=== PATIENT | female | born 1950 | race Caucasian/White ===

== ENCOUNTER → 2023-08-01 08:32 | Outpatient (REF) | payer OTHER, SELFPAY | LOC: RCS 08:32 | PROVIDERS: ATTENDING PHYSICIAN Family Medicine | DX: R01.1 Cardiac murmur, unspecified (principal) | CPT/HCPCS: 93306 ==

== ENCOUNTER 2023-10-15 14:09 | Emergency (ER) | payer SELFPAY ==
[2023-10-15 14:17] VITALS: BP 153/80
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
[2023-10-15] MEDS: MOTRIN 400 MG PO (15:31)
== END 2023-10-15 18:24 | disposition home or self-care (01) ==
LOC: EMR 14:09
PROVIDERS: EMERGENCY PHYSICIAN Emergency Medicine; FAMILY PHYSICIAN Family Medicine
DX: S16.1XXA Strain of muscle, fascia and tendon at neck level, initial encounter (principal); S50.02XA Contusion of left elbow, initial encounter; S20.219A Contusion of unspecified front wall of thorax, initial encounter; R51.9 Headache, unspecified; V43.52XA Car driver injured in collision with other type car in traffic accident, initial encounter; Y92.410 Unspecified street and highway as the place of occurrence of the external cause
CPT/HCPCS: 99284; 70450; 71250; 72125; 73080

== ENCOUNTER → 2023-11-30 08:22 | Outpatient (REF) | payer OTHER, SELFPAY | LOC: WDC 08:22 | PROVIDERS: ATTENDING PHYSICIAN Family Medicine | DX: Z12.31 Encounter for screening mammogram for malignant neoplasm of breast (principal) | CPT/HCPCS: 77063; 77067 ==

== ENCOUNTER 2024-02-22 14:39 | Emergency (ER) | payer OTHER, SELFPAY ==
[2024-02-22] VITALS (8 sets, daily range): BP systolic 103–153; BP diastolic 76–100; PULSE 89–95; BMI 30.1
--- NOTE | 2024-02-22 14:44 | ED.PDOC.TRB ---
ED Provider Triage
-
Patient seen by provider in Triage?: Seen in Triage
73yoF here with fluctuating blood pressures at home today. Feels shaky. SBP 157-180s at home. No hx of HTN. No headache, visual symptoms, chest pain.
Attestation: A medical screening examination has been initiated by a qualified medical provider. Based on the assessment performed at this time, it has been determined that an emergent medical condition may exist and the patient has been informed
that further medical evaluation and possible additional diagnostic testing may be needed.
HPI:
GENERAL: Alert , in no apparent distress
EYE: No visual abnormalities.
NECK: Trachea midline
ENT: No visible abnormalities.
LUNGS: No acute respiratory distress
NEUROLOGICAL: Alert and oriented
SKIN: Skin intact. No visible changes.
MUSCULOSKELETAL: Moving extremities normally
PSYCH: Normal and appropriate interaction.
This is a medical evaluation conducted in person to initiate diagnostic evaluation and provide initial therapeutics. Please see further documentation by the treating clinician.
Will check cardiac labs and EKG.
[2024-02-22 15:17] LABS: % Basophils 0.2 % (0-2); % Eosinophils 3.4 % (0-6); % Immature Granulocytes 0.5 % (0-0.5); % Neutrophils 67.9 % (42.2-75.2); Absolute Eosinophils 0.4 10^3/uL (0-0.7); Absolute Immature Granulocytes 0.1 10^3/uL (0-0.05); Absolute Monocytes 0.9 10^3/uL (0.1-0.6); Hematocrit 40.6 % (37.0-47.0); Hemoglobin 13.7 g/dL (12.0-16.0); Mean Corp Hgb Conc. 33.7 g/dL (33.0-37.0); Mean Corpuscular Volume 82.9 fL (81.0-99.0); Mean Platelet Volume 9.4 fL (7.4-10.4); Nucleated Red Blood Cells % 0 %; Platelet Count 312 10^3/uL (130-400); Red Cell Dist. Width 13.6 % (11.5-14.5); White Blood Cell Count 10.3 10^3/uL (4.8-10.8)
[2024-02-22 15:30] LABS: ALT (SGPT) 24 U/L (0-35); AST (SGOT) 25 U/L (14-36); Albumin 4.7 g/dl (3.5-5.0); Alkaline Phosphatase 79 U/L (38-126); Blood Urea Nitrogen 13 mg/dl (7-17); Calcium 9.9 mg/dl (8.4-10.2); Carbon Dioxide 25 mmol/L (22-30); Chloride 103 mmol/L (98-107); Glucose 107 mg/dl (70-99); Potassium 4.3 mmol/L (3.5-5.1); Sodium 142 mmol/L (135-145); Total Bilirubin 0.6 mg/dl (0.2-1.3); Total Protein 7.5 g/dl (6.3-8.2); eGFR > 60.00
[2024-02-22 15:40] LABS: Troponin I < 0.012 ng/ml
--- NOTE | 2024-02-22 18:12 | ED.GENMED ---
History of Present Illness
General
Chief Complaint: Blood Pressure Problem
Source: patient, records and spouse
Exam Limitations: none
Time Seen by Provider: 02/22/24 17:17
Nursing documentation reviewed up to this point in time: agreed with
History of Present Illness
History of Present Illness:
Patient is a 73-year-old female who presents to the emergency department after her blood pressure around 1 PM today was found to be systolically 1 50-1 60. I continued that way for the next hour and then the patient's face became beet red and her
blood pressure systolically was found to be between 1 80-1 90. Patient took her propranolol which is propranolol LA 120 mg that she takes for migraines. Patient had run out of her medication and had not taken it for the past 2 days and took a dose
today after blood pressure was high. Patient feels fine now. Patient denies chest pain, shortness of breath. Patient does have occasional palpitations. Patient denies fever or chills. Patient denies headache, speech or visual difficulties,
focal weakness or ataxia. Patient denies any GI or symptoms. Patient denies any extremity edema or pain. Patient historically has had low blood pressure and with the Inderal her migraines seem to have stopped. Patient does note that she seems
to have orthostatic symptoms since she has been on the propranolol. Patient takes Inderal 120 mg LA.
Past History
Past History
ED Past Medical History: GERD and Other (Migraines, colon polyps)
Social History
Tobacco: Smoker
Alcohol: Occasional
Review of Systems
Review of Systems
All Other Systems: ROS reviewed and negative except as documented in HPI and ROS
Constitutional: Reports no symptoms
EENT: Reports no symptoms
Respiratory: Reports no symptoms
Cardiac: Reports palpitations; Denies chest pain, diaphoresis or syncope
ABD/GI: Reports no symptoms
: Reports no symptoms
Musculoskeletal: Reports no symptoms
Skin: Reports no symptoms
Neurological: Reports no symptoms
Hematologic/Lymphatic: Reports no symptoms
Psychiatric: Reports no symptoms
Phy Exam
Physical Exam
Physical Exam:
Physical Exam
General: No apparent distress, alert and appropriate, well nourished, well hydrated
HENT: Normocephalic, supple with no lymphadenopathy, no thyromegaly
Eyes: Clear sclera, conjuctiva without injection
Heart: Regular rhythm and rate. No S3, S4. No murmur. No NVD, bruit
Lungs: No respiratory distress, no stridor, lung sounds clear and equal bilaterally
Abdomen: Soft, nontender, no organomegaly, no CVA tenderness, BS good
Neuro: Alert and oriented x 3, CN II - XII intact, no motor focality, no cerebellar dysfunction
Skin: no rash
Psychiatric: well kept. interactive and cooperative
Extremities: No edema, cyanosis, tenderness
Course
Orders/Labs/Results
Orders:
Orders
02/22/24 14:48
Electrocardiogram (*1) Urgent
Reason for Study: Hypertension, Benign
EKG- Treatment ONCE
02/22/24 14:52
Complete Blood Count/With Diff Urgent
Comprehensive Metabolic Panel Urgent
Troponin I Urgent
02/22/24 17:50
Orthostatic VS- Treatment ONCE
Abnormal Lab Results
02/22/24
14:52
Abs Immat Gran (auto) 0.1 H 10^3/uL
(0-0.05)
Absolute Neuts (auto) 7.0 H 10^3/uL
(1.4-6.5)
Absolute Monos (auto) 0.9 H 10^3/uL
(0.1-0.6)
Lymphocytes % 19.0 L %
(20.5-51.1)
Glucose 107 H mg/dl
(70-99)
02/22/24 14:52
02/22/24 14:52
Vital Signs
Initial and Last Documented VS:
Initial Vital Signs
Temp Pulse Resp BP Pulse Ox
98.6 F 120 16 142/83 98
02/22/24 14:45 02/22/24 14:45 02/22/24 14:45 02/22/24 14:45 02/22/24 14:45
Last Documented Vital Signs
Temp Pulse Resp BP Pulse Ox
98.6 F 85 12 122/82 95
02/22/24 14:45 02/22/24 18:15 02/22/24 18:00 02/22/24 18:00 02/22/24 17:45
*Radiology
Radiology exam reviewed: other (na)
*Pulse Oximetry
Patient hypoxic: no
*EKG
Interpreted by ED Provider?: Yes
EKG Intrepretation Date: 02/22/24
EKG Intrepretation Time: 19:21
Interpretation: abnormal
Comparison EKG: no changes
Heart Rate: 105
Rate: normal
Rhythm: sinus
[place]: normal axis
Interval: normal interval
QRS Pattern: low voltage
Ischemia: no ischemia
*Director Patient Accounting Interpretation
Rate: normal
Interpretation: normal
Heart Rate: 90
Rhythm: sinus
*Critical Care Note
Total Time (30-74mins, 75-104mins- exclusive of procedures): Not Applicable
Update Note
Update Note:
Patient's orthostatics are positive on the pressure side. The heart rate does not increase which is probably an effect of the propranolol. Will decrease the Inderal dosage to 80 mg. I will encourage the patient to drink plenty of fluid.
ED Attending Note
-
Portions of this chart may have been created with voice recognition software.� Occasional wrong word or��sound alike� substitutions may have occurred due to the inherent limitations of voice recognition software.
Discharge Plan
Departure
Patient Disposition: Home (Routine Discharge)
Date of Disposition: 02/22/24
Time of Disposition: 18:25
Patient with high blood pressure during this ER visit?: Yes
Condition: Good
Covid-19: Not Applicable
Discharge Problem:
Orthostasis
Instructions: Orthostatic hypotension, Fainting, Adult ED, BLOOD PRESSURE
Prescriptions:
New
propranolol [Inderal LA] 80 mg capsule,extended release 24 hr
80 mg PO DAILY Qty: 30 2RF
No Action
ofloxacin 0.3 % drops
5 drp otic (ear) BID 5 Days Qty: 5 0RF
Referrals:
Latrell Mancia DO [Family Provider] - Follow up in 5-7 days
Activity Restrictions/Additional Instructions:
Stop the Inderal LA 120 mg and start the Inderal LA 80 mg. Make sure to drink plenty of fluids.
Interventions
Interventions:
*Risk Screen - Suicide Last Done: 02/22/24 14:45
*General Assessment Last Done: 02/22/24 18:45
*Neglect/Abuse Screening Last Done: 02/22/24 14:45
ED- Fall Risk Assessment Last Done: 02/22/24 17:12
*ED COVID-19 Vaccine History Last Done: 02/22/24 18:45
*Nursing Disposition Last Done: 02/22/24 18:45
ED- Cardiac Assessment Last Done: 02/22/24 17:12
ED- Neurological Assessment Last Done: 02/22/24 17:12
ED- Pulmonary Assessment Last Done: 02/22/24 17:12
Discharge Date and Time
Discharge Date/Time: 02/22/24 18:48
Print Language: [id number]
== END 2024-02-22 18:48 | disposition home or self-care (01) ==
LOC: EMR 14:39
PROVIDERS: Emergency Medicine; EMERGENCY PHYSICIAN Emergency Medicine; FAMILY PHYSICIAN Family Medicine
DX: I95.1 Orthostatic hypotension (principal); F17.200 Nicotine dependence, unspecified, uncomplicated
CPT/HCPCS: 99284; 80053; 84484; 85025; 93005

== ENCOUNTER 2024-07-19 06:12 | Emergency (ER) | payer OTHER, SELFPAY ==
[2024-07-19 06:23] VITALS: BP 138/84
[2024-07-19 08:02] VITALS: BMI 31.6
[2024-07-19 08:18] VITALS: BP 131/89
[2024-07-19 08:26] LABS: % Basophils 0.7 % (0-2); % Eosinophils 4.1 % (0-6); % Immature Granulocytes 0.3 % (0-0.5); % Lymphocytes 20.2 % (20.5-51.1); % Monocytes 8.1 % (1.7-9.3); % Neutrophils 66.6 % (42.2-75.2); Absolute Basophils 0.1 10^3/uL (0-0.2); Absolute Eosinophils 0.3 10^3/uL (0-0.7); Absolute Lymphocytes 1.4 10^3/uL (1.2-3.4); Absolute Monocytes 0.6 10^3/uL (0.1-0.6); Absolute Neutrophils 4.7 10^3/uL (1.4-6.5); Hematocrit 42.4 % (37.0-47.0); Hemoglobin 13.8 g/dL (12.0-16.0); Mean Corp Hgb Conc. 32.5 g/dL (33.0-37.0); Mean Corpuscular Hgb 28.6 pg (27.0-31.0); Mean Platelet Volume 9.9 fL (7.4-10.4); Nucleated Red Blood Cells % 0 %; Platelet Count 310 10^3/uL (130-400); Red Blood Cell Count 4.82 10^6/uL (4.20-5.40); Red Cell Dist. Width 13.4 % (11.5-14.5)
[2024-07-19 08:37] LABS: ALT (SGPT) 24 U/L (0-35); AST (SGOT) 23 U/L (14-36); Albumin 4.2 g/dl (3.5-5.0); Alkaline Phosphatase 76 U/L (38-126); Blood Urea Nitrogen 11 mg/dl (7-17); Calcium 9.7 mg/dl (8.4-10.2); Carbon Dioxide 26 mmol/L (22-30); Chloride 104 mmol/L (98-107); Estimated Creatinine Clearance 70 ml/min; Glucose 96 mg/dl (70-99); Potassium 4.5 mmol/L (3.5-5.1); Sodium 138 mmol/L (135-145); Total Bilirubin 0.5 mg/dl (0.2-1.3); eGFR > 60.00
--- NOTE | 2024-07-19 08:48 | ED.GENMED ---
History of Present Illness
General
Chief Complaint: Rectal Bleeding
Source: patient
Exam Limitations: none
Time Seen by Provider: 07/19/24 07:49
Nursing documentation reviewed up to this point in time: agreed with
History of Present Illness
History of Present Illness:
73-year-old female presents today for evaluation. Patient reports she had diarrhea and cramping 2 days ago and had mucousy bloody stool. And then again this morning patient reports she had brown stool without dark-colored blood. She did have some
abdominal cramping. She denies any nausea vomiting fever chills.
Past History
Past History
ED Past Medical History: GERD and Other (Migraines, colon polyps)
Social History
Tobacco: Smoker
Alcohol: Occasional
Review of Systems
Review of Systems
Allergies reviewed?: Yes
All Other Systems: ROS reviewed and negative except as documented in HPI and ROS
Constitutional: Reports no symptoms; Denies fever, fatigue or chills
Respiratory: Reports no symptoms
Cardiac: Reports no symptoms
ABD/GI: Reports abdominal pain, nausea, diarrhea and other (rectal bleeding )
: Reports no symptoms
Musculoskeletal: Reports no symptoms
Skin: Reports no symptoms
Neurological: Reports no symptoms
Psychiatric: Reports no symptoms
Phy Exam
General Physical Exam
General Presentation: no apparent distress
General Skin: warm and dry
General Habitus: normal
General Mental: alert
General Hydration: appears well hydrated
Cardiovascular Exam
Cardiovascular Exam: regular rate/rhythm, no murmur and normal peripheral pulses
Pulmonary Exam
Pulmonary Exam: lungs clear and no respiratory distress
Gastrointestinal Exam
Gastrointestinal Exam: soft and other (rectal exam: brown stool heme neg )
Neurological Exam
Neurological Exam: alert
Musculoskeletal Exam
Musculoskeletal Exam: full ROM
Skin Exam
Skin Exam: normal color and warm/dry
Psychiatric Exam
Psychiatric Exam: normal mood/affect
Course
Orders/Labs/Results
Orders:
Orders
07/19/24 08:14
CMP [Comprehensive Metabolic Panel] Urgent
Complete Blood Count/With Diff Urgent
07/19/24 09:31
CT Abd/Pel (IV only)-DH only Urgent
Comment:
Reason For Exam: rectal bleeding/cramping /pain
0.9% Sodium Chloride 1000 ml [Nss] 1,000 ml IV BOLUS
Abnormal Lab Results
07/19/24
08:14
MCHC 32.5 L g/dL
(33.0-37.0)
Lymphocytes % 20.2 L %
(20.5-51.1)
07/19/24 08:14
07/19/24 08:14
Vital Signs
Initial and Last Documented VS:
Initial Vital Signs
Temp Pulse Resp BP Pulse Ox
98.6 F 66 20 138/84 98
07/19/24 06:23 07/19/24 06:23 07/19/24 06:23 07/19/24 06:23 07/19/24 06:23
Last Documented Vital Signs
Temp Pulse Resp BP Pulse Ox
98.6 F 66 12 140/85 96
07/19/24 06:23 07/19/24 11:00 07/19/24 11:00 07/19/24 09:00 07/19/24 09:45
Software Applications Engineer consulted with Physician
Software Applications Engineer consulted with physician?: Yes
Name of Physician Consulted: [email or web address]
MDM/Problems Addressed
Differential Diagnosis Includes:
not limited to: gi bleed, dehydration, diverticulitis colitis
MDM/Problems Addressed:
CAT scan shows long segment colitis involving descending and sigmoid colon. Patient is in no acute distress afebrile normal white count no more episodes of diarrhea rectal exam Brown stool heme-negative. Patient no acute distress and
well-appearing. Case reviewed with ED physician will hold off on antibiotics as patient looks very well no symptoms here. Discussed close outpatient follow-up with PCP/ GI
*Critical Care Note
Total Time (30-74mins, 75-104mins- exclusive of procedures): Not Applicable
ED Attending Note
-
Portions of this chart may have been created with voice recognition software.� Occasional wrong word or��sound alike� substitutions may have occurred due to the inherent limitations of voice recognition software.
Discharge Plan
Departure
Patient Disposition: Home (Routine Discharge)
Date of Disposition: 07/19/24
Time of Disposition: 11:06
Patient with high blood pressure during this ER visit?: Yes
Condition: Fair
Covid-19: Not Applicable
Discharge Problem:
Colitis
Instructions: Bloody Stools, Adult (DC), Colitis - Discharge instructions, BLOOD PRESSURE
Prescriptions:
No Action
pantoprazole 40 mg Tablet,Delayed Release (Dr/Ec)
40 mg PO HS
ibuprofen 200 mg Tablet
600 mg PO Q6HPRN PRN (Reason: head ache)
amitriptyline 100 mg Tablet
100 mg PO HS
Excedrin Migraine 250-250-65 mg Tablet
2 tab PO DAILYPRN PRN (Reason: headache)
fluoxetine 60 mg Tablet
60 mg PO HS
propranolol [Inderal LA] 80 mg capsule,extended release 24 hr
80 mg PO HS
sumatriptan succinate 100 mg Tablet
0 mg PO .COMPLEX
Rx Instructions:
take 1 tab at onset of headache; if no relief, may repeat 1 tab after at least 2 hrs; max = 2 tabs/24 hrs
Referrals:
Latrell Mancia DO [Family Provider] -
Ree Juárez MD [Active] -
Activity Restrictions/Additional Instructions:
As discussed your CAT scan shows colitis however you do not have a fever and your white count is normal. Will hold off on antibiotics at this time. However it is very important you closely follow with your family doctor in the next 2 days for
reevaluation of your symptoms. In addition please call GI. [place] [facility]. Return however if any worsening of symptoms if continued diarrhea abdominal pain fever chills or any further concerns.
Interventions
Interventions:
*Risk Screen - Suicide Last Done: 07/19/24 06:23
*General Assessment Last Done: 07/19/24 08:02
*Neglect/Abuse Screening Last Done: 07/19/24 06:23
ED- Fall Risk Assessment Last Done: 07/19/24 08:02
*ED COVID-19 Vaccine History Last Done: 07/19/24 08:02
*Nursing Disposition Last Done: 07/19/24 11:19
LQ-Enfzpl-Rvdalmeybj Assessment Last Done: 07/19/24 08:02
ED- Cardiac Assessment Last Done: 07/19/24 08:21
ED- Pulmonary Assessment Last Done: 07/19/24 08:02
Discharge Date and Time
Discharge Date/Time: 07/19/24 11:20
Print Language: OCCITAN
[2024-07-19 09:00] VITALS: BP 140/85
[2024-07-19] MEDS: NSS 1000 IV (09:39)
== END 2024-07-19 11:20 | disposition home or self-care (01) ==
LOC: EMR 06:12
PROVIDERS: EMERGENCY PHYSICIAN Student in an Organized Health Care Education/Training Program; FAMILY PHYSICIAN Family Medicine
DX: K52.9 Noninfective gastroenteritis and colitis, unspecified (principal); R11.0 Nausea; R03.0 Elevated blood-pressure reading, without diagnosis of hypertension; K21.9 Gastro-esophageal reflux disease without esophagitis; G43.909 Migraine, unspecified, not intractable, without status migrainosus; F90.9 Attention-deficit hyperactivity disorder, unspecified type; F32.A Depression, unspecified; F17.200 Nicotine dependence, unspecified, uncomplicated; Z86.0100 Personal history of colon polyps, unspecified; Z88.1 Allergy status to other antibiotic agents; Z88.2 Allergy status to sulfonamides
CPT/HCPCS: 99284; 96360; 74177; 80053; 85025; Q9967

== ENCOUNTER 2024-08-31 06:19 | Day surgery (SDC) | payer OTHER, SELFPAY | END 2024-08-31 13:50 | disposition home or self-care (01) | LOC: GI 06:19 | PROVIDERS: ATTENDING PHYSICIAN Surgery | DX: K62.5 Hemorrhage of anus and rectum (principal); K62.1 Rectal polyp | CPT/HCPCS: 45380; 88305 ==

== ENCOUNTER 2024-09-14 15:35 | Emergency (ER) | payer OTHER, SELFPAY ==
[2024-09-14 15:41] VITALS: BP 131/94
--- NOTE | 2024-09-14 16:32 | ED.MUSCINJ ---
HPI-Injury
General
Chief Complaint: Musculo-Skeletal Complaint
Source: patient
Exam Limitations: none
Time Seen by Provider: 09/14/24 16:23
Nursing documentation reviewed up to this point in time: agreed with
History of Present Illness-Injury
Initial Injury comments:
74-year-old female with history of ADHD, depression, migraines states she was carrying something down her steps about 3 hours ago when she tripped down the last 3 steps injuring her right ankle. She denies hitting her head or any other injury.
Past History
Past History
ED Past Medical History: GERD, Psychiatric (ADHD, depression) and Other (Migraines, colon polyps)
ED Past Surgical History: Appendectomy
Social History
Tobacco: Smoker
Alcohol: Occasional
Review of Systems
Review of Systems
Allergies reviewed?: Yes
All Other Systems: ROS reviewed and negative except as documented in HPI and ROS
Musculoskeletal: Reports other (Pain and swelling right ankle)
Skin: Reports no symptoms
Neurological: Denies numbness
Musculoskeletal Injury Exam
Musculoskeletal Injury Exam
Right Lateral Ankle:
Pain with Movement?: Moderate
Tender to palpation?: Moderate
Soft tissue swelling?: Mild
External deformity and angulation?: None
Strain- Sprain- Tear (Connective tissue injury)?: Moderate
Joint instability?: No
Malalignment/deformity?: No
Range of motion: Limited
Distal skin color and temperature: normal-warm & good color
Capillary Refill: normal
Normal distal neurovascular exam?: Yes
Peripheral Pulses: posterior tibial (right): 2+ and dorsalis pedis (right): 2+
Phy Exam
Physical Exam
Physical Exam:
PHYSICAL EXAMINATION:
General: no apparent distress, not acutely ill
Neuro: alert and oriented.
Heart: Regular rate and rhythm
Lungs: CTA
Psychiatric: well kept. interactive and cooperative
Musculoskeletal: Moves with ease
Skin: Warm, pink.
Injury Course
Orders/Labs/Results
Orders:
Orders
09/14/24 15:43
Ankle, Right 3 view CR [CR Ankle - Right Min 3 Views *] Urgent
Comment:
Reason For Exam: injury
09/14/24 16:31
Crutches-Treatment ONCE
Ortho Boot Right- Treatment ONCE
Short or tall?: Tall
Ibuprofen [Motrin] 600 mg PO NOW STA
Procedures
Splint Check
Splint checked by provider?: Yes
Circulation/Movement/Sensation post splint application: brisk cap refill and full sensation
MDM/Problems Addressed
MDM/Problems Addressed:
74-year-old female with history of ADHD, depression, migraines states she was carrying something down her steps about 3 hours ago when she tripped down the last 3 steps injuring her right ankle. She denies hitting her head or any other injury.
X-ray right ankle initially read by this examiner: 2 nondisplaced spiral fractures distal fibula.
ED Attending Note
-
Portions of this chart may have been created with voice recognition software.� Occasional wrong word or��sound alike� substitutions may have occurred due to the inherent limitations of voice recognition software.
Discharge Plan
Departure
Prescriptions:
No Action
pantoprazole 40 mg Tablet,Delayed Release (Dr/Ec)
40 mg PO HS
ibuprofen 200 mg Tablet
600 mg PO Q6HPRN PRN (Reason: head ache)
amitriptyline 100 mg Tablet
100 mg PO HS
Excedrin Migraine 250-250-65 mg Tablet
2 tab PO DAILYPRN PRN (Reason: headache)
fluoxetine 60 mg Tablet
60 mg PO HS
propranolol [Inderal LA] 80 mg capsule,extended release 24 hr
80 mg PO HS
sumatriptan succinate 100 mg Tablet
0 mg PO .COMPLEX
Rx Instructions:
take 1 tab at onset of headache; if no relief, may repeat 1 tab after at least 2 hrs; max = 2 tabs/24 hrs
Interventions
Interventions:
*Risk Screen - Suicide Last Done: 09/14/24 15:41
*Neglect/Abuse Screening Last Done: 09/14/24 15:41
Discharge Date and Time
Print Language: LATVIAN
[2024-09-14] MEDS: MOTRIN 600 MG PO (17:27)
== END 2024-09-14 17:45 | disposition home or self-care (01) ==
LOC: EMR 15:35
PROVIDERS: EMERGENCY PHYSICIAN Student in an Organized Health Care Education/Training Program; FAMILY PHYSICIAN Family Medicine
DX: S82.831A Other fracture of upper and lower end of right fibula, initial encounter for closed fracture (principal); W10.9XXA Fall (on) (from) unspecified stairs and steps, initial encounter; F17.200 Nicotine dependence, unspecified, uncomplicated
CPT/HCPCS: 29515; 99283; 73610

== ENCOUNTER 2024-10-03 06:20 | Day surgery (SDC) | payer OTHER, SELFPAY ==
--- NOTE | 2024-09-28 15:31 | CM ---
Addendum entered by Keyona Parish RN 10/04/24 13:04:
[facility] Authorization
[id number]
10/04-10/10
Skilled Level 1
Addendum entered by Keyona Parish RN 10/04/24 12:16:
Patient has been accepted to [facility]. Patient is aware that she will have to provide her own supply of Vraylar. CM is awaiting PT evaluation for authorization.
Addendum entered by Keyona Parish RN 10/04/24 09:31:
CM met with patient in room. Patient is agreeable to SNF. Patient is agreeable to referrals to be sent to [facility], and [facility].
CM is awaiting PT notes.
PLAN: SNF
Original Note:
CM reviewed medical records. CM spoke with patient via phone. CM confirmed demographics. Patient lives with . Patient does not have a history of VN, SNF. Patient has a walker for ambulation. Patient is active with her PCP. patient uses [facility].
CM discussed SNF. CM advised that patient will have evaluated by PT post operatively and make a recommendations for discharge resources. CM will remain available as needed for discharge planning.
[2024-10-03] VITALS (12 sets, daily range): BP systolic 107–138; BP diastolic 56–92
[2024-10-03] MEDS: TYLENOL 1000 MG PO (09:28)
[2024-10-03] MEDS: MOBIC 15 MG PO (09:29)
[2024-10-03] MEDS: NORMOSOL-R/PLASMALYTE-A 1000 IV (09:48)
[2024-10-03 10:13] LABS: Blood Urea Nitrogen 15 mg/dl (7-17); Estimated Creatinine Clearance 76 ml/min; Glucose 83 mg/dl (70-99)
--- NOTE | 2024-10-03 12:42 | W.PN.SURGUPD ---
Surgical Update
Surgical Update
74 yo F s/p right ankle ORIF
-Posterior splint to remain C/D/I
-NWB to RLE
-PT/OT, will need discharge to SNF
-Ancef for 24 hours while admitted
-Aspirin for DVT prophylaxis upon discharge
-Follow up with myself 2 weeks after discharge at [facility]
--- NOTE | 2024-10-03 13:48 | HPS.HSE ---
Family Physician
-
Family Physician: INTERVIEWE UNKNOWN - PT NOT
Chief Complaint
-
status post ORIF ankle
History of Present Illness
Ms. Sonya Carroll is a 74 yo woman with hx GERD, ADHD, depression, migraine, with fall 09/14/24 resulting in right ankle fracture now s/p ankle ORIF today.
Patient seen post-op. She has no active complaints. No chest pain or shortness of breath.
Medical History
Past Medical History
Past Medical History: Reports Other (GERD, ADHD, depression, migraine)
Past Surgical History: Reports Other
Social History
Tobacco: Non-smoker
Family History
Family History: Not pertinent
Allergies / Home Medications
Allergies reflects when Allergies were last updated in [email or web address].
Home Medications with original date entered in [email or web address]
Allergy/Medication List:
Allergies
Allergy/AdvReac Type Severity Reaction Status Date / Time
sulfamethoxazole Allergy Itching Verified 10/03/24 09:22
[From Bactrim]
trimethoprim [From Bactrim] Allergy Itching Verified 10/03/24 09:22
Home Medications
amitriptyline 100 mg tablet 100 mg PO DAILY 07/19/24
fluoxetine 60 mg tablet 60 mg PO DAILY 07/19/24
pantoprazole 40 mg tablet,delayed release 40 mg PO DAILY 07/19/24
propranolol 80 mg capsule,24 hr,extended release (Inderal LA) 80 mg PO DAILY 07/19/24
hydrocodone 5 mg-acetaminophen 325 mg tablet 1 tab PO Q6H PRN Pain #10 tabs 09/14/24
aspirin 81 mg tablet,delayed release 81 mg PO DAILY 09/27/24
cariprazine 1.5 mg capsule (Vraylar) 1.5 mg PO DAILY 09/27/24
mecobalamin (vitamin B12) 1,000 mcg chewable tablet 1,000 mcg PO DAILY 09/27/24
rosuvastatin 5 mg tablet 5 mg PO DAILY 09/27/24
sumatriptan succinate 100 mg tablet 100 mg PO PRN PRN migraine 09/27/24
Review of Systems
-
History Source: Patient
A 12 point ROS was completed and negative except as noted: Yes
Physical Exam
Vital Signs
Vital Signs
Temp Pulse Resp BP Pulse Ox
97.7 F 63 17 138/68 92
10/03/24 12:47 10/03/24 13:45 10/03/24 13:45 10/03/24 13:45 10/03/24 13:45
Physical Exam
General: No Apparent Distress
HEENT: PERRLA
Respiratory: Clear; No Wheezes
Cardiac: S1/S2 and Regular Rhythm
GI: Soft and Non Tender
Musculoskeletal: No Edema
Skin: Warm and Dry; No Rash
Neuro: AO x 3
Psych: Calm
Laboratory Results
-
10/03/24 09:46
10/03/24 09:46
Data Reviewed
-
Diagnostic Radiology: Report Reviewed by me
Lab Data: Labs Reviewed by me
Impression/Plan
-
Ms. Sonya Carroll is a 74 yo woman with hx GERD, ADHD, depression, migraine, with fall 09/14/24 resulting in right ankle fracture now s/p ankle ORIF today.
Ankle Fracture s/p ORIF by Dr. Pierson 10/03/24
-admit to medicine
-NWB RLE, PT ordered
-IV Ancef x 24 hours
-pain control
-hep subQ ordered for DVT PPx with plans to transition to aspirin on DC
Depression/Anxiety
-continue MEAT PUMPER Regimen: Amitriptyline, Fluoxetine
Migraines
-MEAT PUMPER Propanolol, Sumatriptan PRN
HLD - MEAT PUMPER statin
GERD - MEAT PUMPER Protonix
DVT PPx Hep subQ
FULL CODE
[2024-10-03] MEDS: ROXICODONE 5 MG PO ×2 (14:57→20:03)
[2024-10-03] MEDS: HEPARIN 5000 UNITS SC (16:11)
--- NOTE | 2024-10-03 17:14 | PTCARENOTE ---
Rec'd Pt from PACU, A,A+Ox3. Denies pain. Fabián bandage to R lower leg D+I. No c/o pain presently.
[2024-10-03] MEDS: ANCEF 10 IV (20:03)
[2024-10-03] MEDS: NEURONTIN 300 MG PO (21:06)
[2024-10-04] MEDS: ROXICODONE 5 MG PO ×3 (00:07→11:59)
[2024-10-04] MEDS: HEPARIN 5000 UNITS SC ×2 (00:08→07:56)
[2024-10-04] MEDS: ANCEF 10 IV ×2 (03:47→11:41)
[2024-10-04 07:30] LABS: Blood Urea Nitrogen 16 mg/dl (7-17); Calcium 9.1 mg/dl (8.4-10.2); Carbon Dioxide 25 mmol/L (22-30); Chloride 106 mmol/L (98-107); Estimated Creatinine Clearance 76 ml/min; Glucose 114 mg/dl (70-99); Potassium 4.5 mmol/L (3.5-5.1); Sodium 138 mmol/L (135-145); eGFR > 60.00
[2024-10-04 07:37] LABS: Hematocrit 36.5 % (37.0-47.0); Hemoglobin 12.3 g/dL (12.0-16.0); Mean Corp Hgb Conc. 33.7 g/dL (33.0-37.0); Mean Corpuscular Hgb 28.6 pg (27.0-31.0); Mean Corpuscular Volume 84.9 fL (81.0-99.0); Mean Platelet Volume 10.2 fL (7.4-10.4); Platelet Count 355 10^3/uL (130-400); Red Cell Dist. Width 13.3 % (11.5-14.5); White Blood Cell Count 12.4 10^3/uL (4.8-10.8)
[2024-10-04] MEDS: ASPIR LOW (ENTERIC COATED) 81 MG PO (07:55)
[2024-10-04] MEDS: INDERAL LA 80 MG PO (07:55)
[2024-10-04] MEDS: PROTONIX 40 MG PO (07:56)
[2024-10-04] MEDS: VITAMIN B-12 1000 MCG PO (07:56)
[2024-10-04] MEDS: ELAVIL 100 MG PO (07:56)
[2024-10-04] MEDS: CRESTOR 5 MG PO (07:56)
[2024-10-04] MEDS: PROZAC 60 MG PO (07:56)
[2024-10-04 08:02] VITALS: BP 107/72
--- NOTE | 2024-10-04 08:02 | W.PN.SURGUPD ---
Surgical Update
Surgical Update
74 yo F s/p R ankle ORIF
-Patient seen and evaluated at bedside, posterior splint to remain C/D/I
-NWB to RLE, recommend SNF
-Appreciate PT eval
-Aspirin for DVT prophylaxis upon discharge, pain regimen oxycodone 5g q6h prn, tylenol, ibuprofen, gabapentin 300mg at bedtime
--- NOTE | 2024-10-04 10:07 | W.PN.HOSP.TC ---
Today's Communication/Plan
-
dispo planning for SNF
Assessment / Plan
Assessment / Plan
Ms. Sonya Carroll is a 74 yo woman with hx GERD, ADHD, depression, migraine, with fall 09/14/24 resulting in right ankle fracture now s/p ankle ORIF on 10/03/24.
Ankle Fracture s/p ORIF by Dr. Pierson 10/03/24
-admit to medicine
-NWB RLE, PT ordered - plan to DC to SNF
-IV Ancef x 24 hours
-pain control
-hep subQ ordered for DVT PPx with plans to transition to aspirin on DC
Depression/Anxiety
-continue BROADBAND ENGINEER Regimen: Amitriptyline, Fluoxetine
Migraines
-BROADBAND ENGINEER Propanolol, Sumatriptan PRN
HLD - BROADBAND ENGINEER statin
GERD - BROADBAND ENGINEER Protonix
DVT PPx Hep subQ
FULL CODE
Anticipated Discharge: Within 24 hours
Subjective/Interval History
-
Date of Service: October 04, 2024
oxycodone helping with pain, discomfort when starts to wear off; willing to trial tylenol
Objective Data
-
Labs:
Laboratory Results
10/04/24 10/04/24
06:14 06:15
WBC 12.4 H
Hgb 12.3
Hct 36.5 L
Plt Count 355
Sodium 138
Potassium 4.5
Chloride 106
Carbon Dioxide 25
BUN 16
Creatinine 0.7
Glucose 114 H
Calcium 9.1
Vital Signs:
Vital Signs
Temp Pulse Resp BP Pulse Ox
99.0 F 75 16 107/72 92
10/04/24 08:02 10/04/24 08:02 10/04/24 08:02 10/04/24 08:02 10/04/24 08:02
I&O
10/03/24 10/04/24 10/05/24
06:59 06:59 06:59
Intake Total 555 / 555 240 / 240
Balance 555 / 555 240 / 240
Review of Systems
-
History Source: Patient
All other systems: Reviewed and negative
Physical Exam
-
General: No Apparent Distress
HEENT: PERRLA
Respiratory: Clear to Auscultation; Negative Wheezes
Cardiac: Regular Rhythm and S1/S2
GI: Soft and Nontender
Musculoskeletal: No Edema
Skin: Warm and Dry; Negative Rash
Neuro: AO x 3
Psych: Calm
Data Reviewed
-
Diagnostic Radiology: Report Reviewed by me
Labs: Labs Reviewed by me
[2024-10-04] MEDS: TYLENOL 1000 MG PO (11:40)
--- NOTE | 2024-10-04 12:02 | W.DS.TRANS ---
DC Summary - Inserter
-
Discharge Instructions:
Sleep Apnea Risk Low
Discharge Diagnosis/Procedures right ankle ORIF on 10/03/24
Diet Regular
Activity Do not bear weight R leg
Additional Activity NWB to RLE
Driving Restrictions No driving
Bathing Restrictions None
Other Services PT,OT
Instructions:
Stand-Alone Forms:
Changes to Home Medications: Yes
Discharge Medications:
DC Medications w/original date entered in [employer]
amitriptyline 100 mg tablet 100 mg PO DAILY 07/19/24
fluoxetine 60 mg tablet 60 mg PO DAILY 07/19/24
pantoprazole 40 mg tablet,delayed release 40 mg PO DAILY 07/19/24
propranolol 80 mg capsule,24 hr,extended release (Inderal LA) 80 mg PO DAILY 07/19/24
aspirin 81 mg tablet,delayed release 81 mg PO DAILY 09/27/24
cariprazine 1.5 mg capsule (Vraylar) 1.5 mg PO DAILY 09/27/24
mecobalamin (vitamin B12) 1,000 mcg chewable tablet 1,000 mcg PO DAILY 09/27/24
rosuvastatin 5 mg tablet 5 mg PO DAILY 09/27/24
sumatriptan succinate 100 mg tablet 100 mg PO PRN PRN migraine 09/27/24
acetaminophen 500 mg tablet (Tylenol Extra Strength) 1,000 mg (2 x 500 mg) PO TIDPRN PRN mild pain #20 tabs 10/04/24
aspirin 325 mg capsule 325 mg PO DAILY #28 caps 10/04/24
gabapentin 300 mg capsule 300 mg PO HS #30 caps 10/04/24
oxycodone 5 mg tablet 5 mg PO Q4HPRN PRN severe pain #15 tabs 10/04/24
polyethylene glycol 3350 17 gram oral powder packet 17 g PO DAILYPRN PRN constipation #14 ea 10/04/24
sennosides 8.6 mg-docusate sodium 50 mg tablet 1 tab PO BIDPRN PRN constipation #30 tabs 10/04/24
Home Medication Changes
Stop [place], you are prescribed Oxycodone to help with severe pain.
You may also take Tylenol 1G q 8 hours as needed. You can consider making this a standing order if it helps.
You are prescribed Gabapentin to help with pain.
You are prescribed 28 days of Aspirin 325mg daily to help prevent blood clots. Hold the 81mg aspirin while on this higher dose and resume when you complete the 28 day course.
Pending Results: No
[2024-10-04 12:26] VITALS: BP 103/71; PULSE 77; O2SAT 93
--- NOTE | 2024-10-04 13:10 | CM ---
Patient for transfer to [facility]
Report
[phone]
--- NOTE | 2024-10-04 13:48 | W.DCSUMMARY ---
Discharge Summary
Discharge Data
Date of Admission: 10/03/24
Date of Discharge: 10/04/24
-
Pending Results: No
Hospital Course
Discharging Physician : Dr. Whit Russell
Disposition : SNF
Primary care physician : Dr. Latrell Mancia
Principal Discharge diagnosis : status post ORIF right ankle 10/03/24
Hospital Course :
Ms. Sonya Carroll is a 74 yo woman with hx GERD, ADHD, depression, migraine, with fall 09/14/24 resulting in right ankle fracture now s/p ankle ORIF 10/04/24. She was admitted post-op where she received pain control, IV Cefazolin prophylaxis and
physical therapy for NWB RLE. SNF is recommended.
She is discharged with prescription of Oxycodone, Gabapentin and Tylenol for pain control. She is also written for Aspirin 325mg daily for DVT PPx.
Patient to follow up with Dr. Pierson as outpatient.
Time spent on discharge was 32 minutes.
Important imaging findings :
Procedure findings :
Discharge Plan
-
Patient Disposition: Skilled Nursing/SNF
Discharge Diagnosis/Procedures: right ankle ORIF on 10/03/24
Diet: Regular
Activity: Do not bear weight R leg
Additional Activity: NWB to RLE
Driving Restrictions: No driving
Bathing Restrictions: None
Other Services: PT and OT
Referrals:
Harish Pierson MD [Active] - in one to two weeks
UNKNOWN - PT NOT,INTERVIEWE [Family Provider] -
Additional Discharge Medication Instructions: Stop [place], you are prescribed Oxycodone to help with severe pain.
You may also take Tylenol 1G q 8 hours as needed. You can consider making this a standing order if it helps.
You are prescribed Gabapentin to help with pain.
You are prescribed 28 days of Aspirin 325mg daily to help prevent blood clots. Hold the 81mg aspirin while on this higher dose and resume when you complete the 28 day course.
Prescriptions:
New
polyethylene glycol 3350 17 gram Powder In Packet
17 g PO DAILYPRN PRN (Reason: constipation) Qty: 14 0RF
sennosides-docusate sodium 8.6-50 mg Tablet
1 tab PO BIDPRN PRN (Reason: constipation) Qty: 30 0RF
gabapentin 300 mg Capsule
300 mg PO HS Qty: 30 0RF
oxycodone 5 mg Tablet
5 mg PO Q4HPRN PRN (Reason: severe pain) Qty: 15 0RF
acetaminophen [Tylenol Extra Strength] 500 mg Tablet
1,000 mg PO TIDPRN PRN (Reason: mild pain) Qty: 20 0RF
aspirin 325 mg capsule
325 mg PO DAILY Qty: 28 0RF
Continued
pantoprazole 40 mg Tablet,Delayed Release (Dr/Ec)
40 mg PO DAILY
amitriptyline 100 mg Tablet
100 mg PO DAILY
fluoxetine 60 mg Tablet
60 mg PO DAILY
propranolol [Inderal LA] 80 mg capsule,extended release 24 hr
80 mg PO DAILY
rosuvastatin 5 mg Tablet
5 mg PO DAILY
mecobalamin (vitamin B12) 1,000 mcg Tablet,Chewable
1,000 mcg PO DAILY
Vraylar 1.5 mg Capsule
1.5 mg PO DAILY
sumatriptan succinate 100 mg Tablet
100 mg PO PRN PRN (Reason: migraine)
Held
aspirin 81 mg Tablet,Delayed Release (Dr/Ec)
81 mg PO DAILY
Hold Instructions: Resume on 11/02/24.
Discontinued
hydrocodone-acetaminophen 5-325 mg tablet
1 tab PO Q6H PRN (Reason: Pain) Qty: 10 0RF
Discharge Orders:
Discharge Patient (As Directed); Ordered 10/04/24
Ordered By: Whit Russell
Discharge Date and Time
Print Language: BOTSWANAN
[2024-10-04 15:35] VITALS: BP 123/66
--- NOTE | 2024-10-04 16:44 | PTCARENOTE ---
Patient discharged to [facility] via EMS, report called to Antonette at facility. This RN removed patient's IV, belongings gathered in room. R leg dressing C/D/I. Vitals taken prior to DC stable.
== END 2024-10-04 16:45 ==
LOC: SDS 06:20
PROVIDERS: Student in an Organized Health Care Education/Training Program; ATTENDING PHYSICIAN Student in an Organized Health Care Education/Training Program; CONSULT PHYSICIAN Student in an Organized Health Care Education/Training Program
DX: S82.841A Displaced bimalleolar fracture of right lower leg, initial encounter for closed fracture (principal); X50.1XXA Overexertion from prolonged static or awkward postures, initial encounter
CPT/HCPCS: 27814; C1713; 73610; 76000; 80048; 82565; 82947; 84520; 85018; 85027; 93005; 97163; 97167